=== PATIENT | male | born 1985 | race Asian ===

== ENCOUNTER 2022-10-23 00:41 | Emergency (ER) | payer MEDICAID ==
[~2022-10-23] VITALS: Ht 167.6 cm; Wt 75.0 kg
[2022-10-23 00:46] VITALS: BP 127/83
[2022-10-23] MEDS ORDERED: TETANUS, DIPHTHERIA, PERTUSSIS VAC/PF 0.5ML (>10YR OLD) IM ONE (01:00)
[2022-10-23] MEDS ORDERED: BACITRACIN ZINC OINT UDPKT TOP ONE (01:00)
[2022-10-23] MEDS ORDERED: IBUPROFEN 600MG TABLET PO STA (01:22)
[2022-10-23] MEDS ORDERED: TOPUD PO (10:42)
== END 2022-10-23 03:51 | disposition left against medical advice (07) ==
LOC: ER 00:41
DX: S61.210A Laceration without foreign body of right index finger without damage to nail, initial encounter (principal); S61.212A Laceration without foreign body of right middle finger without damage to nail, initial encounter; S61.214A Laceration without foreign body of right ring finger without damage to nail, initial encounter; X78.0XXA Intentional self-harm by sharp glass, initial encounter; Y93.89 Activity, other specified; Y92.89 Other specified places as the place of occurrence of the external cause
CPT/HCPCS: 99281

== ENCOUNTER 2022-10-23 06:41 | Emergency (ER) | payer MEDICAID ==
[~2022-10-23] VITALS: Ht 167.6 cm; Wt 75.0 kg
[2022-10-23 07:05] VITALS: BP 121/80
[2022-10-23] MEDS ORDERED: LIDOCAINE HCL/PF 1% 10 MG/ML 5ML VIAL INFIL ONE (10:00)
[2022-10-23] MEDS ORDERED: TOPUD PO (10:42)
== END 2022-10-23 11:05 | disposition home or self-care (01) ==
LOC: ER 06:41
DX: S61.210A Laceration without foreign body of right index finger without damage to nail, initial encounter (principal); S61.212A Laceration without foreign body of right middle finger without damage to nail, initial encounter; X78.0XXA Intentional self-harm by sharp glass, initial encounter; Y93.89 Activity, other specified; Y92.89 Other specified places as the place of occurrence of the external cause
CPT/HCPCS: 12001; 73120; 99283; J3490

== ENCOUNTER 2022-10-25 11:16 | Emergency (ER) | payer MEDICAID ==
[~2022-10-25] VITALS: Ht 170.2 cm; Wt 75.0 kg
[~2022-10-25 11:16] MED LIST: TOPUD PO
[2022-10-25 11:25] VITALS: BP 125/77
== END 2022-10-25 18:22 | disposition home or self-care (01) ==
LOC: ER 11:16
DX: Z48.00 Encounter for change or removal of nonsurgical wound dressing (principal)
CPT/HCPCS: 99281

== ENCOUNTER 2022-11-04 10:48 | Emergency (ER) | payer MEDICAID ==
[~2022-11-04] VITALS: Ht 170.2 cm; Wt 75.0 kg
[2022-11-04 11:06] VITALS: BP 98/63
[2022-11-04] MEDS ORDERED: CEPH500C2 MT (12:56)
[2022-11-04] MEDS ORDERED: BACITRACIN ZINC OINT UDPKT TOP ONE (13:00)
== END 2022-11-04 13:22 | disposition home or self-care (01) ==
LOC: ER 10:48
DX: Z48.01 Encounter for change or removal of surgical wound dressing (principal); L08.89 Other specified local infections of the skin and subcutaneous tissue
CPT/HCPCS: 99282; 99283